=== PATIENT | female | born 1980 | race African-American/Black ===

== ENCOUNTER 2019-11-10 20:06 | Emergency (ER) | payer OTHER ==
[2019-11-10 20:16] VITALS: TEMP 97.9; BMI 42.5
--- NOTE | 2019-11-10 21:49 | PDOC ---
History of Present Illness - General Chief Complaint: Chest Pain Stated Complaint: CHEST PAIN History Source: Patient Exam Limitations: No Limitations - History of Present Illness Initial Comments: 11/10/19 22:23 39 yo female pmh s/p menigioma removal (complicated by DVT after bed rest, treated with AC and stopped AC as directed), diabetes and obesity presents to the ED for sudden onset CP. Pt states while lifting up her child and walking up a flight of stairs, she had sudden onset severe CP described as pressure with related SOB, denies N/V, diaphoresis or radiation off pain. Pain relieved after 1 hour of rest but currently describes pain as burning. Pt denies hx of heart disease, family cardiac hx, smoking hx, never had a stress test or seen cardiology, denies current SOB, back pain, abdominal pain, pleuritic CP, F/C/N/V , changes in bowel or bladder habits, recent travel, smoking hx, calf swelling or tenderness Past History - Past Medical History Allergies/Adverse Reactions: Allergies Allergy/AdvReac Type Severity Reaction Status Date / Time No Known Allergies Allergy Verified 11/10/19 20:16 COPD: No - Surgical History Abdominal Surgery: Yes (gastric bypass) - Psycho Social/Smoking Cessation Hx Smoking History: Never smoked Have you smoked in the past 12 months: No Information on smoking cessation initiated: No Hx Alcohol Use: No Drug/Substance Use Hx: No Substance Use Type: None Review of Systems - Review of Systems Constitutional: Yes: See HPI HEENTM: Yes: See HPI Respiratory: Yes: See HPI Cardiac (ROS): Yes: See HPI ABD/GI: Yes: See HPI : Yes: See HPI Musculoskeletal: Yes: See HPI Integumentary: Yes: See HPI Neurological: Yes: See HPI *Physical Exam - Vital Signs Last Vital Signs Temp Pulse Resp BP Pulse Ox 97.9 F 80 19 153/101 H 100 11/10/19 20:13 11/10/19 20:13 11/10/19 20:13 11/10/19 20:13 11/10/19 20:13 - Physical Exam General Appearance: Yes: Nourished, Appropriately Dressed. No: Apparent Distress HEENT: positive: EOMI Neck: positive: Supple. negative: Carotid bruit Respiratory/Chest: positive: Lungs Clear, Normal Breath Sounds. negative: Respiratory Distress, Accessory Muscle Use, Rapid RR, Crackles, Rales, Rhonchi, Stridor, Wheezing Cardiovascular: positive: Regular Rhythm, Regular Rate, S1, S2. negative: Edema , JVD, Murmur Vascular Pulses: Dorsalis-Pedis (R): 4+, Doralis-Pedis (L): 4+ Gastrointestinal/Abdominal: positive: Flat, Soft. negative: Pulsatile Mass, Protuberent, Distended, Guarding, Rebound, Tenderness Musculoskeletal: negative: CVA Tenderness Extremity: positive: Normal Capillary Refill, Normal Inspection, Normal Range of Motion Integumentary: positive: Normal Color, Dry, Warm Neurologic: positive: Fully Oriented, Alert, Normal Mood/Affect, Normal Response Heart Score/ECG Review - History History: Moderately suspicious - Electrocardiogram EKG: Normal - Age Age: </= 45 - Risk Factors Risk Factors Heart Score: Yes Hx Diabetes, No Smoking History, No Positive family hx of cardiac disease, Yes Hx Obesity Based on the list above the patient has:: 1-2 risk factors - Troponin Troponin: </= normal limit - Score Heart Score - Total: 2 ED Treatment Course - LABORATORY CBC & Chemistry Diagram: 11/10/19 21:44 11/10/19 21:44 - RADIOLOGY Radiology Studies Ordered: Category Date Time Status CHEST PA & LAT [RAD] Stat Radiology 11/10/19 21:47 Ordered Medical Decision Making - Medical Decision Making 11/10/19 23:59 39 yo female pmh s/p menigioma removal (complicated by DVT after bed rest, treated with AC and stopped AC as directed), diabetes and obesity presents to the ED for sudden onset CP. Pt states while lifting up her child and walking up a flight of stairs, she had sudden onset severe CP described as pressure with related SOB, denies N/V, diaphoresis or radiation off pain. Pain relieved after 1 hour of rest but currently describes pain as burning. Pt denies hx of heart disease, family cardiac hx, smoking hx, never had a stress test or seen cardiology, denies current SOB, back pain, abdominal pain, pleuritic CP, F/C/N/V , changes in bowel or bladder habits, recent travel, smoking hx, calf swelling or tenderness vitals show elevated BP, will repeat DDX INLT; ACS, PE, EVAN, EKG NSR without acute ischemic changes. Heart score of 2 Will do D dimer do to past hx DVT and new CP Labs WNL Will repeat trop, reassess and dispo 11/11/19 03:[address] neg for PE, shows 2.6 cm lesion in right lobe and multiple enhancing lesions in the right lobe. Pt Can follow up with Primary Doctor for the suggested multiphase CT or MRI. Second trop neg Pt will be given Cardiology F/U and strict instructions to follow up with PCP regarding abnormal CT findings Safe for DC home with strict return precautions Discharge - Discharge Information Problems reviewed: Yes Clinical Impression/Diagnosis: Chest pain Condition: Stable Disposition: HOME - Admission No - Follow up/Referral Referrals: Wendy Jansen NP [Primary Care Provider] - - Patient Discharge Instructions Patient Printed Discharge Instructions: DI for Atypical Chest Pain, DI for Chest Pain Additional Instructions: Please see your Primary Doctor within the next 48 hours and discuss the CT results provided to you for further care and follow up. Please make an appointment with the [facility] referred to you within the next 1 week. Return to the ER for new or concerning symptoms. Thank you - Post Discharge Activity
[2019-11-10 22:23] LABS: BASO % 1.3 % (0-2.0); EOS % 2.5 % (0-4.5); HEMOGLOBIN 12.1 GM/dL (10.7-15.3); LYMPH % 40.1 % (8-40); MCH 24.6 pg (25.7-33.7); MCHC 32.6 g/dl (32.0-36.0); MEAN CELL VOLUME 75.5 fl (80-96); MEAN PLT VOLUME 8.1 fl (7.5-11.1); MONO % 5.4 % (3.8-10.2); NEUT % 50.7 % (42.8-82.8); PLATELET COUNT 306 K/MM3 (134-434); RDW 15.7 % (11.6-15.6); WHITE BLOOD COUNT 9.5 K/mm3 (4.0-10.0)
[2019-11-10 22:42] LABS: ALBUMIN 3.5 g/dl (3.4-5.0); BILIRUBIN,TOTAL 0.2 mg/dL (0.2-1); BLOOD UREA NITROGEN 10.9 mg/dL (7-18); CALCIUM 8.4 mg/dL (8.5-10.1); CREATININE 0.9 mg/dL (0.55-1.3); MAGNESIUM 2.2 mg/dL (1.8-2.4); POTASSIUM 3.9 mmol/L (3.5-5.1); TOT PROT 7.1 g/dl (6.4-8.2)
[2019-11-10] MEDS ORDERED: MAG HYDROX/AL HYDROX/SIMETH 30 ML UNIT-DOSE CUP PO ONE (22:48)
[2019-11-10] MEDS ORDERED: FAMOTIDINE 20 MG TABLET PO ONE (22:49)
[2019-11-10] MEDS ORDERED: FAMOTIDINE 20 MG TABLET ONE (22:50)
[2019-11-10] MEDS ORDERED: MAG HYDROX/AL HYDROX/SIMETH 30 ML UNIT-DOSE CUP ONE (22:51)
--- NOTE | 2019-11-10 23:35 | PDOC ---
Attending Attestation - Resident Resident Name: MindaErvin - ED Attending Attestation I have performed the following: I have examined & evaluated the patient, The case was reviewed & discussed with the resident, I agree w/resident's findings & plan, Exceptions are as noted - HPI HPI: 11/10/19 23:31 39 yo F h/o DM brain meningioma s/p resection prior dvt here with c/o chest pain while walking up stairs with her 6 yr old daughter. assoc sob. no radiation . lasted one hour. since resolved. pressure " crushing like pain" no recent leg swelling. no n/v does have recent cough, no fever. no other complaints. no family h/no cad, no h/o similar pain - Physicial Exam PE: 11/10/19 23:33 awake alert lungs clear bilat heart rrr no mrg abd soft nt nd ext wwp. no edema. no calf tenderness. CV 2+ dp pt pulses bilat. skin warm and dry nuero alert oriented x 3. - Medical Decision Making 11/10/19 23:33 39 yo F h/o meningioma, dm prior dvt here with crushing cp. differential acs, gerd pe infection such as pna. plan ekg cxr labs trop. will likely requier 4 hour troponin short observation. Heart Score/ECG Review #1 ECG reviewed & interpreted by me at: 23:35 General ECG Interpretation: Sinus Rhythm, Normal Rate, Normal Intervals, No acute ischemic changes Compared to previous ECG there are: Other (TWI III, AVF)
[2019-11-11 00:46] VITALS: BP 140/90; PULSE 88
[2019-11-11 01:04] LABS: INR 0.87 (0.83-1.09); PROTHROMBIN TIME (PATIENT) 10.3 SEC (9.7-13.0)
--- NOTE | 2019-11-11 11:28 | EKG ---
Test Reason : Blood Pressure : / mmHG Vent. Rate : 079 BPM Atrial Rate : 079 BPM P-R Int : 184 ms QRS Dur : 082 ms QT Int : 400 ms P-R-T Axes : 051 -06 -02 degrees QTc Int : 458 ms NORMAL SINUS RHYTHM POSSIBLE LEFT ATRIAL ENLARGEMENT LEFT VENTRICULAR HYPERTROPHY ST ELEVATION, CONSIDER EARLY REPOLARIZATION, PERICARDITIS, OR INJURY NONSPECIFIC ST ABNORMALITY ABNORMAL ECG NO PREVIOUS ECGS AVAILABLE Confirmed by AGATA GAMBLE MD ([id number]) on 11/11/2019 11:27:50 AM Referred By: Confirmed By:AGATA GAMBLE MD
== END 2019-11-11 04:28 | disposition home or self-care (01) ==
LOC: JER 20:06
DX: R07.9 Chest pain, unspecified (principal); E11.9 Type 2 diabetes mellitus without complications; E66.01 Morbid (severe) obesity due to excess calories; Z68.41 Body mass index [BMI] 40.0-44.9, adult; Z98.890 Other specified postprocedural states; J98.4 Other disorders of lung
CPT/HCPCS: 36415; 71046-TC-FY; 71275-TC; 80053; 82550; 82553; 83735; 84484; 84703; 85025; 85379; 85610; 85730; 93005; 93010; 99285-25